=== PATIENT | female | born 1960 | race Caucasian/White ===

== ENCOUNTER 2018-01-26 05:47 | Day surgery (SDC) | payer OTHER, MEDICARE ==
[~2018-01-26] VITALS: Ht 154.9 cm; Wt 55.4 kg
[2018-01-26] MEDS ORDERED: LACTATED RINGERS 1,000 ML IV SCH (06:48)
[2018-01-26] MEDS ORDERED: TIZANIDINE PO (06:52)
[2018-01-26] MEDS ORDERED: SIMV20TA3 PO (06:52)
[2018-01-26] MEDS ORDERED: CITA20TA5 PO (06:52)
[2018-01-26] MEDS ORDERED: GABA600T2 PO (06:52)
[2018-01-26] MEDS ORDERED: METH4TAB2 PO (06:52)
[2018-01-26] MEDS ORDERED: OXYC-302 PO (06:52)
[2018-01-26 06:55] VITALS: BP 126/82
[2018-01-26] MEDS ORDERED: EPINEPHRINE 1 MG/ML, 1ML ONE (06:55)
[2018-01-26] MEDS ORDERED: THROMBIN 5,000 UNIT VIAL TP ONE (06:55)
[2018-01-26] MEDS ORDERED: BUPIVACAINE/PF 0.5% ONE (06:55)
[2018-01-26] MEDS ORDERED: BACITRACIN 50,000 UNIT ONE (06:55)
[2018-01-26] MEDS ORDERED: MIDAZOLAM 1 MG/ML, 2ML ONE (07:08)
[2018-01-26] MEDS ORDERED: FENTANYL PF 250 MCG/5ML ONE (07:09)
[2018-01-26] MEDS ORDERED: ACETAMINOPHEN 500 MG TABLET PO ONE (07:30)
[2018-01-26] MEDS ORDERED: GABAPENTIN 300 MG CAPSULE PO ONE (07:30)
[2018-01-26] MEDS ORDERED: ACETAMINOPHEN 500 MG TABLET ONE (07:31)
[2018-01-26] MEDS ORDERED: GABAPENTIN 300 MG CAPSULE ONE ×2 (07:31→07:32)
[2018-01-26] MEDS ORDERED: ACETAMINOPHEN 325 MG TABLET PO PRN (08:30)
[2018-01-26] MEDS ORDERED: hydrALAzine 20 MG/ML, 1ML IV PRN (08:30)
[2018-01-26] MEDS ORDERED: LABETALOL 5MG/ML, 20ML IV PRN (08:30)
[2018-01-26] MEDS ORDERED: ALBUTEROL SULFATE 2.5 MG/3 ML NPPB PRN (08:30)
[2018-01-26] MEDS ORDERED: PROMETHAZINE 12.5 MG SUPP PR PRN (08:30)
[2018-01-26] MEDS ORDERED: FENTANYL PF 100 MCG/2ML IV PRN (08:30)
[2018-01-26] MEDS ORDERED: LORazepam 2 MG/ML, 1ML IVPush PRN (08:30)
[2018-01-26] MEDS ORDERED: HYDROmorphone 1 MG/ML, 1ML IV PRN (08:30)
[2018-01-26] MEDS ORDERED: PROMETHAZINE 25 MG/ML, 1ML IV PRN (08:30)
[2018-01-26] MEDS ORDERED: MEPERIDINE/PF 25MG/0.5ML IVPush PRN (08:30)
[2018-01-26] MEDS ORDERED: BUPIVACAINE/PF-EPI 0.5% 1:200K IM ONE (08:35)
[2018-01-26] MEDS ORDERED: OXYcodone 5 MG/5 ML ORAL.SOL UDC ONE (09:59)
[2018-01-26] MEDS: OXYcodone 5 MG/5 ML ORAL.SOL UDC PO PRN ×2 (10:00→10:58)
[2018-01-26] MEDS ORDERED: PROPOFOL 10 MG/ML, 50ML ONE (11:04)
[2018-01-26] MEDS ORDERED: PROPOFOL 10 MG/ML, 20ML ONE (11:04)
[2018-01-26] MEDS ORDERED: SUCCINYLCHOLINE 20 MG/ML, 10ML ONE (11:04)
== END 2018-01-26 16:20 ==
LOC: OUT 05:47
PROVIDERS: ATTEND Neurological Surgery
DX: M54.12 Radiculopathy, cervical region (principal); M48.02 Spinal stenosis, cervical region; E78.5 Hyperlipidemia, unspecified
CPT/HCPCS: 63020; 63035; 72040; 95938; 95941; C1713; J0171; J0330; J2250; J2704; J3010; J3490; J7120

== ENCOUNTER → 2020-06-06 | Outpatient (CLI) | payer OTHER, MEDICARE ==
[~2020-06-06] MED LIST: ATOR20TA37 PO; CITA20TA6 PO; GABA600T7 PO; LISI-167 PO; METH4TAB2 PO; OXYC-302 PO; SIMV20TA19 PO; TIOT18CA INH; TIZANIDINE PO
[2020-06-06 11:37] LABS: BASOPHILS # (AUTO) 0.05 x10^3/uL (0-0.1); BASOPHILS % (AUTO) 1 % (0-1); EOSINOPHILS % (AUTO) 1 % (1-7); LYMPHOCYTES # (AUTO) 3.02 x10^3/uL (1-3.4); LYMPHOCYTES % (AUTO) 30 % (22-44); MD NO; MEAN CORPUSCULAR HEMOGLOBIN 34.2 pg (27.0-34.8); MEAN CORPUSCULAR HGB CONC 33.4 g/dL (32.4-35.8); MEAN CORPUSCULAR VOLUME 102.3 fL (80-100); MEAN PLATELET VOLUME 9.1 fL (7.4-10.4); MONOCYTES # (AUTO) 0.66 x10^3/uL (0.2-0.8); MONOCYTES % (AUTO) 7 % (2-9); NEUTROPHILS # (AUTO) 6.15 x10^3/uL (1.8-6.8); NEUTROPHILS % (AUTO) 62 % (42-75); PLATELET COUNT 268 x10^3/uL (130-400); RED BLOOD COUNT 4.92 x10^6/uL (3.82-5.3)
[2020-06-06 11:47] LABS: INTERNATIONAL NORMALIZED RATIO 0.96 (0.93-1.1); PROTHROMBIN TIME 10.2 Seconds (9.6-11.5)
[2020-06-06 11:49] LABS: ALBUMIN 4.5 g/dL (3.4-5.0); ANION GAP 6 mmol/L (5-15); CALCIUM 9.5 mg/dL (8.5-10.1); CHLORIDE 109 mmol/L (98-107)
[2020-06-06 11:52] LABS: ALANINE AMINOTRANSFERASE 17 U/L (12-78); ALKALINE PHOSPHATASE 93 U/L (45-117); BILIRUBIN,TOTAL 0.6 mg/dL (0.2-1.0); CREATININE 1.01 mg/dL (0.55-1.02); TOTAL PROTEIN 8.1 g/dL (6.4-8.2)
== END | disposition home or self-care (01) ==
LOC: STAR 10:31
PROVIDERS: ATTEND Neurological Surgery
DX: Z01.818 Encounter for other preprocedural examination (principal); Z11.59 Encounter for screening for other viral diseases; M48.062 Spinal stenosis, lumbar region with neurogenic claudication
CPT/HCPCS: 36415; 71046; 80053; 85025; 85610; 85730; 87635; 93005

== ENCOUNTER 2020-06-12 06:30 | Observation (INO) | payer OTHER, MEDICARE ==
[~2020-06-12] VITALS: Ht 154.9 cm; Wt 61.1 kg
[2020-06-12 06:56] VITALS: BP 119/78
[2020-06-12] MEDS ORDERED: CHLORHEXIDINE 15 ML UDC MM STA (07:00)
[2020-06-12] MEDS ORDERED: LACTATED RINGERS 1,000 ML IV SCH (07:00)
[2020-06-12] MEDS ORDERED: MIDAZOLAM 1 MG/ML, 2ML ONE (08:38)
[2020-06-12] MEDS ORDERED: FENTANYL PF 250 MCG/5ML ONE (08:38)
[2020-06-12] MEDS ORDERED: BUPIVACAINE/PF-EPI 0.5% 1:200K ONE (09:00)
[2020-06-12] MEDS ORDERED: BACITRACIN 50,000 UNIT ONE (09:00)
[2020-06-12] MEDS ORDERED: FENTANYL PF 100 MCG/2ML IV PRN (11:30)
[2020-06-12] MEDS ORDERED: ONDANSETRON 2MG/ML, 2ML IVPush PRN (11:30)
[2020-06-12] MEDS ORDERED: LABETALOL 5MG/ML, 20ML IV PRN ×2 (11:30→13:30)
[2020-06-12] MEDS ORDERED: ALBUTEROL SULFATE 2.5 MG/3 ML NPPB PRN (11:30)
[2020-06-12] MEDS ORDERED: PROMETHAZINE 25 MG/ML, 1ML IV PRN (11:30)
[2020-06-12] MEDS ORDERED: MEPERIDINE/PF 25MG/0.5ML IVPush PRN (11:30)
[2020-06-12] MEDS ORDERED: KETOROLAC 30 MG/1 ML IV PRN (11:30)
[2020-06-12] MEDS ORDERED: METOCLOPRAMIDE 5 MG/ML, 2ML IV PRN (11:30)
[2020-06-12] MEDS ORDERED: hydrALAzine 20 MG/ML, 1ML IV PRN (11:30)
[2020-06-12] MEDS ORDERED: OXYcodone 5 MG/5 ML ORAL.SOL UDC PO PRN (11:30)
[2020-06-12] MEDS ORDERED: DIAZEPAM 5 MG/ML, 2ML IV PRN ×3 (11:30→13:30)
[2020-06-12] MEDS ORDERED: HYDROmorphone 1 MG/ML, 1ML INJ IV PRN (11:30)
[2020-06-12] MEDS ORDERED: FENTANYL PF 100 MCG/2ML ONE (11:31)
[2020-06-12] MEDS ORDERED: OXYcodone 5 MG/5 ML ORAL.SOL UDC ONE (11:31)
[2020-06-12] MEDS ORDERED: KETOROLAC 30 MG/1 ML ONE (11:57)
[2020-06-12] MEDS ORDERED: PROMETHAZINE 25 MG/ML, 1ML IM PRN (13:30)
[2020-06-12] MEDS ORDERED: DIPHENHYDRAMINE 50 MG/ML, 1ML IM PRN (13:30)
[2020-06-12] MEDS ORDERED: METHOCARBAMOL 750 MG TABLET PO PRN (13:30)
[2020-06-12] MEDS ORDERED: HYDROmorphone 2 MG/ML, 1ML IM PRN (13:30)
[2020-06-12] MEDS ORDERED: HYDROcodone/APAP 5/325 TABLET PO PRN (13:30)
[2020-06-12] MEDS ORDERED: DIPHENHYDRAMINE 25 MG CAPSULE PO PRN (13:30)
[2020-06-12] MEDS ORDERED: BISACODYL 10 MG SUPP PR PRN (13:30)
[2020-06-12] MEDS ORDERED: DIPHENHYDRAMINE 50 MG/ML, 1ML IVPush PRN (13:30)
[2020-06-12] MEDS ORDERED: HYDROmorphone 2 MG/ML, 1ML IVPush PRN (13:30)
[2020-06-12] MEDS ORDERED: ONDANSETRON 2MG/ML, 2ML IV PRN (13:30)
[2020-06-12] MEDS ORDERED: MAGNESIUM HYDROXIDE 8%, 30ML UDC PO PRN (13:30)
[2020-06-12] MEDS: DIAZEPAM 5 MG TABLET PO PRN ×2 (14:03→22:00)
[2020-06-12] MEDS: CEFAZOLIN PMX 1GM/50ML 50 ML IVPB SCH ×2 (14:04→22:00)
[2020-06-12] MEDS: NS + 20MEQ KCL 1,000 ML IV SCH (14:04)
[2020-06-12] MEDS: OXYcodone IR 5MG TABLET PO PRN ×3 (15:43→22:50)
[2020-06-12] MEDS ORDERED: GABAPENTIN 300 MG CAPSULE PO SCH (16:00)
[2020-06-12] MEDS ORDERED: CEFAZOLIN 1,000 MG ONE (16:11)
[2020-06-12] MEDS ORDERED: ROCURONIUM 10MG/ML,5ML ONE (16:11)
[2020-06-12] MEDS ORDERED: ONDANSETRON 2MG/ML, 2ML ONE (16:11)
[2020-06-12] MEDS ORDERED: DEXAMETHASONE 4 MG/ML, 1ML ONE (16:11)
[2020-06-12] MEDS ORDERED: SUCCINYLCHOLINE 20 MG/ML, 10ML ONE (16:11)
[2020-06-12] MEDS ORDERED: PROPOFOL 10 MG/ML, 20ML ONE (16:11)
[2020-06-12] MEDS: GABAPENTIN 300 MG CAPSULE PO SCH ×2 (17:18→22:00)
[2020-06-12 19:12] VITALS: BP 96/46
[2020-06-12] MEDS ORDERED: ATORVASTATIN 20 MG TABLET PO SCH (21:00)
[2020-06-13] MEDS: CYCLOBENZAPRINE 10 MG TABLET PO PRN ×2 (00:15→09:13)
[2020-06-13 00:24] VITALS: BP 124/73
[2020-06-13] MEDS: NS + 20MEQ KCL 1,000 ML IV SCH (02:50)
[2020-06-13 03:48] VITALS: BP 112/67
[2020-06-13] MEDS: DIAZEPAM 5 MG TABLET PO PRN (05:13)
[2020-06-13] MEDS: OXYcodone IR 5MG TABLET PO PRN ×3 (06:00→12:06)
[2020-06-13 06:58] VITALS: BP 100/60
[2020-06-13 08:47] VITALS: BP 98/58
[2020-06-13] MEDS: GABAPENTIN 300 MG CAPSULE PO SCH (08:49)
[2020-06-13] MEDS ORDERED: TIOTROPIUM BROMIDE 18 MCG/INH INH SCH (09:00)
[2020-06-13] MEDS ORDERED: SENNA/DOCUSATE TABLET PO SCH (09:00)
[2020-06-13] MEDS ORDERED: LISINOPRIL 20 MG TABLET PO SCH (09:00)
[2020-06-13] MEDS ORDERED: OXYC-302 PO (09:09)
[2020-06-13] MEDS ORDERED: CYCL-259 PO (09:09)
[2020-06-13 12:09] VITALS: BP 106/68
== END 2020-06-13 12:35 | disposition home or self-care (01) ==
LOC: OUT 06:30 → 4NE 12:38 → ORIP 13:19 → OUT 14:15 → 4NE 15:28 → DCLOUNGE 06-13 12:21
PROVIDERS: ADMIT Neurological Surgery; ATTEND Neurological Surgery
DX: M48.061 Spinal stenosis, lumbar region without neurogenic claudication (principal); E78.00 Pure hypercholesterolemia, unspecified; F32.9 Major depressive disorder, single episode, unspecified; F41.9 Anxiety disorder, unspecified; F17.210 Nicotine dependence, cigarettes, uncomplicated; Z79.899 Other long term (current) drug therapy
CPT/HCPCS: 63030; 63047; 72100; 96365; 96366; 97162; G0378; J0330; J0690; J1100; J1885; J2250; J2405; J2704; J3010; J3480; J7120